=== PATIENT | female | born 1975 | race Two or more races ===

== ENCOUNTER 2024-12-01 05:22 | Day surgery (SDC) | payer OTHER ==
[2024-11-24 13:19] VITALS: BP 138/84
[~2024-12-01] VITALS: Ht 157.5 cm; Wt 89.4 kg
[~2024-12-01 05:22] MED LIST: CLARITIN10 M3 PO; LOSARTAN POTASS25 MG PO
[2024-12-01] MEDS ORDERED: CEFOXITIN SODIUM 2,000 MG VIAL IV ONE (07:48)
[2024-12-01] MEDS ORDERED: BUPIVACAINE HCL/MPF 0.5% 30ML VIAL ONE (08:57)
[2024-12-01] MEDS ORDERED: LIDOCAINE HCL 1%/EPINEPHRINE 20ML VIAL IJ ONE (08:57)
[2024-12-01] MEDS ORDERED: SUGAMMADEX SODIUM 200 MG/2 ML VIAL IV ONE (09:29)
[2024-12-01] MEDS ORDERED: ONDANSETRON HCL 2 MG/ML VIAL ONE (11:17)
[2024-12-01] MEDS ORDERED: ONDANSETRON HCL 2 MG/ML VIAL IV ONE (11:20)
[2024-12-01] MEDS ORDERED: PROTONIX40 MG PO (11:39)
[2024-12-01] MEDS ORDERED: TRAM1TAB98 PO (11:39)
[2024-12-01] MEDS ORDERED: ONDANSETRON ODT4 MG PO (11:40)
[2024-12-01 16:17] VITALS: BP 144/81; O2SAT 100
== END 2024-12-01 13:10 | disposition home or self-care (01) ==
LOC: CIR.AMB 05:22
PROVIDERS: ATTEND Surgery
DX: K81.1 Chronic cholecystitis (principal); Z88.6 Allergy status to analgesic agent; Z91.018 Allergy to other foods